=== PATIENT | male | born 1985 | race American Indian/Alaskan Native ===

== ENCOUNTER 2017-04-17 14:05 | Emergency (ER) | payer OTHER ==
[2017-04-17 14:13] VITALS: BP 113/63
[2017-04-17] MEDS ORDERED: MOTRIN PO ONE (15:23)
[2017-04-17] MEDS ORDERED: MOTRIN ONE (15:25)
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
== END 2017-04-17 17:36 | disposition home or self-care (01) ==
LOC: ED 14:05
DX: S66.912A Strain of unspecified muscle, fascia and tendon at wrist and hand level, left hand, initial encounter (principal); S13.4XXA Sprain of ligaments of cervical spine, initial encounter; S39.012A Strain of muscle, fascia and tendon of lower back, initial encounter; F17.200 Nicotine dependence, unspecified, uncomplicated; F12.10 Cannabis abuse, uncomplicated; V89.2XXA Person injured in unspecified motor-vehicle accident, traffic, initial encounter; Y93.89 Activity, other specified; Y92.89 Other specified places as the place of occurrence of the external cause; Y99.8 Other external cause status
CPT/HCPCS: 72100; 99283